=== PATIENT | male | born 1970 | race Caucasian/White ===

== ENCOUNTER 2020-06-09 | Emergency (ER) | payer SELFPAY ==
[~2020-06-09] MED LIST: ADDERALL30 MG PO; ATENOLOL50 MG OR; BACTRIM DS1 TAB PO; DOXYCYCL HYC100 MG PO; IMODIUM OR; LITHIUM CARB600 MG OR; METHADONE; METOPROL TAR25 MG PO; PERCOCET 5/321 COMBO PO; PROMETHAZINE25 M1 RE; PROMETHAZINE25 MG OR; SEROQUEL100 MG OR; TORADOL OR; ULTRACET OR; XANAX1 MG OR
[2020-06-09] MEDS ORDERED: AMOXICILLIN500 MG PO (07:25)
[2020-06-09] MEDS ORDERED: NAPROXEN500 MG PO (07:25)
== END 2020-06-09 07:35 | disposition home or self-care (01) | DRG 159 ==
DX: K04.7 Periapical abscess without sinus (principal); F17.200 Nicotine dependence, unspecified, uncomplicated

== ENCOUNTER 2020-10-03 00:17 | Observation (INO) | payer SELFPAY ==
[~2020-10-03] VITALS: Ht 190.5 cm; Wt 109.0 kg
[~2020-10-03 00:17] MED LIST changes: +AMOXICILLIN500 MG PO; +NAPROXEN500 MG PO
--- NOTE | 2020-10-03 00:25 | NUR ---
PT TO ROOM VIA HEELCHAIR FOR BEDSIDE TRIAGE
--- NOTE | 2020-10-03 00:56 | NUR ---
PT TO RADIOLOGY AFTER PORTABLE XRAY COMPLETED
[2020-10-03] MEDS ORDERED: METHADONE10 MG/ML PO (00:58)
--- NOTE | 2020-10-03 01:24 | NUR ---
IV ACCESS OBTAINED LABS DRAWN, MEDICATED ORDERED AND IVF STARTED. PT AWARE OF NEED FOR URINE SPECIMEN.
[2020-10-03 01:29] LABS: HEMATOCRIT 38.5 % (39.0-50.0); HEMOGLOBIN 13.1 g/dl (14.0-18.0); IMMATURE GRANULOCYTES 0.3 % (0.0-5.0); MEAN CELL VOLUME 91.7 fL CALC (80.0-100.0); MEAN CORPUSCULAR HGB 31.2 pG CALC (26.0-32.0); NEUT# 4.57 thou/uL (1.82-7.42); RED BLOOD COUNT 4.2 mill/uL (4.70-6.10); RED CELL DISTRI WIDTH 12.3 % (11.5-15.5)
[2020-10-03 01:43] LABS: ALBUMIN 4.1 g/dL (3.2-5.0); ALKALINE PHOSPHATASE 109 u/l (38-126); ANION GAP 11 (6-22 (CALC)); BUN 17 mg/dL (9-20); BUN/CREATININE RATIO 21 (12-20 (CALC)); CARBON DIOXIDE 30 mmol/l (22-30); CHLORIDE 100 mmol/l (95-108); CREATININE 0.8 mg/dL (0.7-1.3); GFR > 60 ML/MIN (>=60 (CALC)); GFR FOR AFR.AMER. > 60 ML/MIN (>=60 (CALC)); POTASSIUM 4.2 mmol/l (3.5-5.1); SGOT/AST 40 u/l (17-59); SODIUM 137 mmol/l (137-146); TOTAL PROTEIN 7.5 g/dL (6.3-8.2)
--- NOTE | 2020-10-03 02:51 | NUR ---
PT RESTIGN STATES PAIN IS IMPROVED, B/P IMPROVED SINCE MEDICATED WILL COTNINUE TO MONITOR
--- NOTE | 2020-10-03 04:13 | NUR ---
PT PROVIDED URINE SPECIMEN, IVF CONTINUE TOOK ASA W/O INCIDENT, AND NTG PASTE APPLIED ORDERED, WILL CONTINUE TO MONITOR
[2020-10-03 04:44] LABS: URINE BILIRUBIN - DIPSTICK NEGATIVE (NEGATIVE); URINE BLOOD DIPSTICK NEGATIVE (NEGATIVE); URINE COLOR YELLOW; URINE GLUCOSE - DIPSTICK NEGATIVE (NEGATIVE); URINE KETONE TRACE mg/dL (NEGATIVE); URINE LEUK ESTERASE NEGATIVE (NEGATIVE); URINE NITRITE - DIPSTICK NEGATIVE (Negative); URINE PH 5.5 (4.5-8.0); URINE PROTEIN - DIPSTICK NEGATIVE (NEG-TRACE); URINE SPECIFIC GRAVITY >=1.030; URINE UROBILINOGEN - DIPSTICK 0.2 E.U./dL (0.2)
--- NOTE | 2020-10-03 05:36 | NUR ---
PT AWARE OF PLANNED ADMISSION, STATES PAIN IS CURRENTLY RESOLVED BUT UNDERSTANDS REASON FOR ADMIT, CALL RAY WITHIN REACH.
--- NOTE | 2020-10-03 07:11 | NUR ---
REPORT RECEIVED FROM LULY ERAZO.
--- NOTE | 2020-10-03 07:33 | NUR ---
ATTEMPTED REPORT TO MS, NURSES IN [facility]
--- NOTE | 2020-10-03 07:50 | NUR ---
Admission Note Report Given to: STEPHEN Transported by: X Wheelchair Stretcher Transported with: X Nurse Transporter X Patent IV O2 X Superintendent Circus Location: ICU X [facility] PT TRANSPORTED IN STABLE CONDITION TO NC WITH BELONGINGS.
--- NOTE | 2020-10-03 07:50 | NUR ---
PT ARRIVED VIA STRETCHER ACCOMPANIED BY Shruthi HOLGUIN RN. A&O X4. NO DISTRESS NOTED. STEADY GAIT OBSERVED DURING AMBULATION TO AND FROM THE BATHROOM. CLEAR BREATH SOUNDS UPON AUSCULTATION. S1/S2 HEARD UPON AUSCULTATION. ACTIVE BOWEL SOUNDS X4 QUADRANTS. BM REPORTED YESTERDAY 10/02/20. PT DENIES ANY PAIN AT THIS TIME. PT DENIES ANY DIZZINESS AT THIS TIME. DENIES ANY OTHER MEDICAL HX BESIDES HEPATITIS C, WHICH HE WILL START TREATMENT FOR SOON. TRACE EDEMA NOTED TO BILATERAL ANKLES. STEFANO DENNIS OFFERED BUT REFUSED. #20G RAC HEALTHY AND PATENT. NO OTHER NEEDS AT THIS TIME. ORIENTED PT TO ROOM. CALL LIGHT LEFT WITHIN REACH. ASSESSMENT COMPLETED. DISCUSSED POC. CALL LIGHT WITHIN REACH.
[2020-10-03 07:51] VITALS: BP 157/78
[2020-10-03 10:41] VITALS: BP 151/92
[2020-10-03] MEDS ORDERED: MECLIZINE25 MG PO (11:15)
[2020-10-03] MEDS ORDERED: BENADRYL25 M1 PO (11:42)
[2020-10-03] MEDS ORDERED: [UNRECOGNIZED DRUG - OTHER] PO (11:43)
--- NOTE | 2020-10-03 12:38 | NUR ---
Discharge instructions given. Patient verbalizes understanding of same. Discharged in stable condition via ambulation to Home with staff. All belongings sent with pt.
== END 2020-10-03 12:36 | disposition home or self-care (01) | DRG 313 ==
LOC: ED 00:17 → ED-I 05:13 → ED 05:34 → MS2 05:35
PROVIDERS: Emergency Medicine; ADMIT Hospitalist; ATTEND Hospitalist
DX: R07.9 Chest pain, unspecified (principal); R42 Dizziness and giddiness; G89.4 Chronic pain syndrome; F17.200 Nicotine dependence, unspecified, uncomplicated; I45.10 Unspecified right bundle-branch block; Z20.822 Contact with and (suspected) exposure to COVID-19
CPT/HCPCS: G0378

== ENCOUNTER 2020-11-23 23:36 | Emergency (ER) | payer SELFPAY ==
[~2020-11-23] VITALS: Ht 188 cm; Wt 114.0 kg
[~2020-11-23 23:36] MED LIST changes: +BENADRYL25 M1 PO; +MECLIZINE25 MG PO; +METHADONE10 MG/ML PO; +[UNRECOGNIZED DRUG - OTHER] PO
[2020-11-24 00:28] LABS: HEMATOCRIT 42.1 % (39.0-50.0); HEMOGLOBIN 14.3 g/dl (14.0-18.0); IMMATURE GRANULOCYTES 0.6 % (0.0-5.0); MEAN CELL VOLUME 90.3 fL CALC (80.0-100.0); MEAN CORPUSCULAR HGB 30.7 pG CALC (26.0-32.0); NEUT# 5.06 thou/uL (1.82-7.42); RED BLOOD COUNT 4.66 mill/uL (4.70-6.10); RED CELL DISTRI WIDTH 12.4 % (11.5-15.5); URINE BLOOD DIPSTICK TRACE-INTACT (NEGATIVE); URINE COLOR YELLOW; URINE GLUCOSE - DIPSTICK NEGATIVE (NEGATIVE); URINE KETONE NEGATIVE (NEGATIVE); URINE LEUK ESTERASE NEGATIVE (NEGATIVE); URINE PROTEIN - DIPSTICK NEGATIVE (NEG-TRACE); URINE SPECIFIC GRAVITY 1.025
[2020-11-24 00:29] LABS: URINE NITRITE - DIPSTICK NEGATIVE (Negative)
[2020-11-24 00:30] LABS: URINE BILIRUBIN - DIPSTICK SMALL (NEGATIVE)
[2020-11-24 00:35] LABS: ALBUMIN 4.6 g/dL (3.2-5.0); ALKALINE PHOSPHATASE 102 u/l (38-126); AMYLASE 68 u/l (30-110); ANION GAP 13 (6-22 (CALC)); BUN 18 mg/dL (9-20); BUN/CREATININE RATIO 22 (12-20 (CALC)); CARBON DIOXIDE 30 mmol/l (22-30); CHLORIDE 97 mmol/l (95-108); CREATININE 0.8 mg/dL (0.7-1.3); GFR > 60 ML/MIN (>=60 (CALC)); GFR FOR AFR.AMER. > 60 ML/MIN (>=60 (CALC)); LIPASE 75 u/l (23-300); POTASSIUM 3.5 mmol/l (3.5-5.1); SGOT/AST 39 u/l (17-59); SODIUM 137 mmol/l (137-146); TOTAL PROTEIN 8.4 g/dL (6.3-8.2)
[2020-11-24 00:42] LABS: BILIRUBIN, TOTAL 0.5 mg/dL (0.0-1.4)
[2020-11-24] MEDS ORDERED: PROTONIX40 MG PO (02:42)
[2020-11-24 03:50] VITALS: BP 157/84
== END 2020-11-24 04:10 | disposition home or self-care (01) | DRG 392 ==
LOC: ED 23:36
DX: K59.00 Constipation, unspecified (principal); K21.9 Gastro-esophageal reflux disease without esophagitis; F11.20 Opioid dependence, uncomplicated; B19.20 Unspecified viral hepatitis C without hepatic coma; Z20.822 Contact with and (suspected) exposure to COVID-19
CPT/HCPCS: Q9967; S0164

== ENCOUNTER 2022-03-15 22:44 | Emergency (ER) | payer SELFPAY ==
[~2022-03-15] VITALS: Ht 188 cm; Wt 122.0 kg
[~2022-03-15 22:44] MED LIST changes: +PROTONIX40 MG PO
[2022-03-15 22:53] VITALS: BP 143/88
[2022-03-15 23:00] VITALS: BP 140/77
[2022-03-15] MEDS ORDERED: ATENOLOL25 MG PO (23:01)
[2022-03-15 23:16] VITALS: BP 163/84
[2022-03-15 23:31] VITALS: BP 162/94
[2022-03-15 23:39] LABS: BASO% 0.1 % (0-3); EOS% 1.8 % (0-8); HEMATOCRIT 37.8 % (39.0-50.0); HEMOGLOBIN 13.6 g/dl (14.0-18.0); IMMATURE GRANULOCYTES 0.3 % (0.0-5.0); LYMPH% 31.7 % (15-41); MEAN CELL VOLUME 88.5 fL CALC (80.0-100.0); MEAN CORPUSCULAR HGB 31.9 pG CALC (26.0-32.0); MONO% 5.9 % (2-13); NEUT# 4.68 thou/uL (1.82-7.42); NEUT% 60.2 % (42-76); RED BLOOD COUNT 4.27 mill/uL (4.70-6.10); RED CELL DISTRI WIDTH 12.2 % (11.5-15.5)
[2022-03-15 23:51] LABS: ALBUMIN 4.5 g/dL (3.2-5.0); ALKALINE PHOSPHATASE 104 u/l (38-126); ANION GAP 10 (6-22 (CALC)); BILIRUBIN, TOTAL 0.3 mg/dL (0.0-1.4); BUN 17 mg/dL (9-20); BUN/CREATININE RATIO 20 (12-20 (CALC)); CARBON DIOXIDE 27 mmol/l (22-30); CHLORIDE 105 mmol/l (95-108); CREATININE 0.8 mg/dL (0.7-1.3); GFR FOR AFR.AMER. > 60 ML/MIN (>=60 (CALC)); GFR OTHER RACES > 60 ML/MIN (>=60 (CALC)); POTASSIUM 4.1 mmol/l (3.5-5.1); SGOT/AST 37 u/l (17-59); SODIUM 138 mmol/l (137-146); TOTAL PROTEIN 7.8 g/dL (6.3-8.2)
[2022-03-16 00:43] LABS: URINE BILIRUBIN - DIPSTICK NEGATIVE (NEGATIVE); URINE BLOOD DIPSTICK NEGATIVE (NEGATIVE); URINE COLOR YELLOW; URINE GLUCOSE - DIPSTICK NEGATIVE (NEGATIVE); URINE KETONE NEGATIVE (NEGATIVE); URINE LEUK ESTERASE NEGATIVE (NEGATIVE); URINE NITRITE - DIPSTICK NEGATIVE (Negative); URINE PROTEIN - DIPSTICK NEGATIVE (NEG-TRACE); URINE SPECIFIC GRAVITY >=1.030; URINE UROBILINOGEN - DIPSTICK 0.2 E.U./dL (0.2)
[2022-03-16] MEDS ORDERED: ATIVAN0.5 MG PO (01:49)
[2022-03-16 01:57] VITALS: BP 162/94
== END 2022-03-16 02:18 | disposition home or self-care (01) | DRG 880 ==
LOC: ED 22:44
PROVIDERS: Emergency Medicine
DX: F41.9 Anxiety disorder, unspecified (principal)
CPT/HCPCS: J2060

== ENCOUNTER 2022-04-11 21:45 | Emergency (ER) | payer SELFPAY ==
[~2022-04-11] VITALS: Ht 188 cm; Wt 118.0 kg
[~2022-04-11 21:45] MED LIST changes: +ATENOLOL25 MG PO; +ATIVAN0.5 MG PO
[2022-04-11] MEDS ORDERED: ATIVAN0.5 MG PO (22:16)
[2022-04-11 22:30] VITALS: BP 179/97
== END 2022-04-11 22:30 | disposition home or self-care (01) | DRG 880 ==
LOC: ED 21:45
DX: F41.9 Anxiety disorder, unspecified (principal)